=== PATIENT | male | born 1935 | race African-American/Black ===

== ENCOUNTER → 2016-08-05 | Outpatient (CLI) | payer MEDICARE ==
--- NOTE | 2016-08-05 16:17 | CARD ---
APPROVED REPORT EXAM: Two-dimensional and M-mode echocardiogram with Doppler and color Doppler. Other Information Quality : AverageHR: 63bpm Rhythm : NSR INDICATION Cardiac Disease: CAD 2D DIMENSIONS RVDd3.2 (2.9-3.5cm)Left Atrium(2D)4.0 (1.6-4.0cm) IVSd1.1 (0.7-1.1cm)Aortic Root(2D)3.2 (2.0-3.7cm) LVDd4.9 (3.9-5.9cm)LVOT Diameter2.2 (1.8-2.4cm) PWd1.1 (0.7-1.1cm)LVDs3.9 (2.5-4.0cm) FS (%) 22.0 %SV45.0 ml LVEF(%)45.0 (>50%) Aortic Valve AoV Peak Liam.106.3cm/sAoV VTI20.5cm AO Peak GR.4.5mmHgLVOT Peak Liam.81.2cm/s LVOT VTI 18.03cmAO Mean GR.3mmHg ELAINA (VMAX)2.52dp2RCN (VTI)3.27cm2 Mitral Valve MV E Fdqfyrfp62.3cm/sMV DECEL QFNA658zr MV A Bhdfeypr84.6cm/sMV E Mean Gr.1mmHg MV MDZ698pbM/A Ratio0.5 MV A Vhonlrwp075zaNTG (PHT)2.03cm2 TDI E/Lateral E'7.4E/Medial E'7.7 Pulmonary Valve PV Peak Eewsilhd95.8cm/sPV Peak Grad.2mmHg RVOT VTI14.5cm Tricuspid Valve TR P. Cjlokwpu556gv/sRAP ERBWMZXR0dzXx TR Peak Gr.93icNuLKTY50nqXw Pulmonary Vein S1 Fypwspmm58.7cm/sD2 Bzdovyet45.4cm/s PVa qbazbnur088sczj LEFT VENTRICLE The left ventricle is normal size. There is normal left ventricular wall thickness. Left ventricle sy stolic function is mildly decreased. The Ejection Fraction is 45-50%. There is severe hypokinesis in the lateral region. Transmitral Doppler flow pattern is Grade I-abnormal relaxation pattern. There is no ventricular septal defect visualized. RIGHT VENTRICLE The right ventricle is normal size. The right ventricular systolic function is normal. ATRIA The left atrium size is normal. The right atrium size is normal. The interatrial septum is intact wit h no evidence for an atrial septal defect or patent foramen ovale as noted on 2-D or Doppler imaging. AORTIC VALVE The aortic valve is mildly calcified but opens well. The aortic valve is trileaflet. Doppler and [place] r Flow revealed no significant aortic regurgitation. There is no significant aortic valvular stenosis . MITRAL VALVE Mitral annular calcification is mild. The mitral valve leaflets are calcified but opens well.. There is no evidence of mitral valve prolapse. There is no mitral valve stenosis. Doppler and Color-flow re vealed trace mitral regurgitation. TRICUSPID VALVE The tricuspid valve is normal in structure. Doppler and Color Flow revealed trace to mild tricuspid r egurgitation. The PA pressure was estimated at 26 mmHg. There is no tricuspid valve stenosis. PULMONIC VALVE The pulmonary valve is normal in structure. Doppler and Color Flow revealed mild pulmonic valvular re gurgitation. There is no pulmonic valvular stenosis. GREAT VESSELS The aortic root is normal in size. The ascending aorta is normal in size. The IVC is normal in size a nd collapses >50% with inspiration. PERICARDIAL EFFUSION There is no pleural effusion. There is no evidence of significant pericardial effusion. Critical Notification Critical Value: No <Conclusion> The left ventricle is normal size. Left ventricle systolic function is mildly decreased. The Ejection Fraction is 45-50%. There is severe hypokinesis in the lateral region. There is no significant aortic valvular stenosis. Doppler and Color Flow revealed no significant aortic regurgitation. Doppler and Color-flow revealed trace mitral regurgitation. Doppler and Color Flow revealed trace to mild tricuspid regurgitation. The PA pressure was estimated at 26 mmHg.
== END | disposition home or self-care (01) ==
LOC: ECHO 09:38
PROVIDERS: ATTEND Internal Medicine Cardiovascular Disease
DX: I25.10 Atherosclerotic heart disease of native coronary artery without angina pectoris (principal); I08.1 Rheumatic disorders of both mitral and tricuspid valves
CPT/HCPCS: 93306

== ENCOUNTER → 2016-08-17 | Outpatient (CLI) | payer MEDICARE ==
[~2016-08-17] MED LIST: REGADENOSON 0.4 MG/5 ML DISP.SYRIN. IV ONE
--- NOTE | 2016-08-17 13:12 | RAD ---
APPROVED REPORT Test Type: Pharmacological Stress Nurse/Tech: Suly Schofield RN Test Indications: ischemic cardiomyopathy Cardiac History: see ehr Medications: see ehr Medical History: see ehr Resting ECG: SR Resting Heart Rate: 70 bpm Resting Blood Pressure: 146/89mmHg Pretest Chest Pain: None Nurse/Tech Notes Lungs CTA, S1, S2 Consent: The procedure was explained to the patient in lay terms. Informed consent was witnessed. Rusty eout was entered into [employer]. History and Stress Test performed by Marilou GrandaNElizabeth Pharm. Details Pharmacologic stress testing was performed using 0.4mg per 5ml of regadenoson given intravenously ove r 7-10 seconds. Stress Symptoms No chest pain or symptoms. POST EXERCISE Reason for Termination: Infusion complete Max HR: 104 bpm Max Blood Pressure: 138/81mmHg Blood Pressure response to exercise: Normal blood pressure response during stress. Chest Pain: No. Arrhythmia: No. ST Change: No. INTERPRETATION Stress EKG Conclusion: Baseline EKG showed sinus rhythm with inferolateral T-wave inversions. Nondiag nostic changes at peak stress. No arrhythmias. Imaging Protocol IMAGE PROTOCOL: Rest Tc-99m/stress Tc-99m 1 day Rest: Stress: Viability: Radiopharm.Tc99m IkemjtvsqDo56x Sestamibi Cysq59jWd 32mCi Duration 15min. 10min. Img Date 08/17/2016 08/17/2016 Inj-Img Qhte84goh. 60min. Rest Admin Site:IV - Right HandAdministrator:KAYLENE Schulz, ARRT (R)(N) Stress Admin Site: IV - Right HandAdministrator: Arleen Felix, RT (R)(N) Viability Admin Site:12Administrator: STRESS DATA End Diast. Vol.145.0mlAv. Heart Rate60.0bpm End Syst. Vol.62.0mlCO Index BSA0.0L/min Myocardial Dyvo152.0gEject. Lbuqmzup22.0% Stress Rates Pk. Fill Rate1.63EDV/secLVtime Pk. Fill 105.63msec Pk. Empty Rate2.58ESV/secLVtime Pk. Mysim462.81msec 04/19 Pk. Fill1.10EDV/sec Stress Scores Regional WT0.00Summed WT16.00 Regional WM0.00Summed WM6.00 LV Perfusion Scintigraphic images showed small to moderate fixed defect involving the base to mid inferior wall co nsistent with previous myocardial infarction without any significant reversibility. Wall Motion Basal inferior wall hypokinesis with ejection fraction calculated at 57%. LV Perf. Quant 17 Seg. SSS5.00 17 Seg. SRS6.00 17 Seg. SDS1.00 Stress Defect Extent (% LAD)0.00Rest Defect Extent (% LAD)0.00Rev. Defect Extent (% LAD)0.00 Stress Defect Extent (% LCX) 0.00Rest Defect Extent (% LCX)0.00Rev. Defect Extent (% LCX)0.00 Stress Defect Extent (% RCA)41.10Rest Defect Extent (% RCA)40.00Rev. Defect Extent (% RCA)0.00 Stress Defect Extent (% EVELYN)9.80Rest Defect Extent (% EVELYN)9.80Rev. Defect Extent (% EVELYN)0.20 Conclusion 1. Regadenoson cardioisotope stress test showed small to moderate sized base to mid inferior wall inf arction without any significant ischemia. 2. Basal inferior wall hypokinesis with ejection fraction calculated at 57%. 3. Low risk for cardiac events.
== END | disposition home or self-care (01) ==
LOC: NM 07:37
PROVIDERS: ATTEND Internal Medicine Cardiovascular Disease
DX: I25.5 Ischemic cardiomyopathy (principal)
CPT/HCPCS: 78452; 93017; 96374; 96375; 96376; A9500; J2785

== ENCOUNTER → 2018-09-21 | Outpatient (CLI) | payer OTHER, MEDICARE ==
--- NOTE | 2018-09-21 12:03 | CARD ---
MR#: [id number] Date of Study: 09/21/2018 Ordering Physician: JOSH BLEDSOE, Referring Physician: JOSH BLEDSOE, Tech: Mellissa Cortes APPROVED REPORT EXAM: Two-dimensional and M-mode echocardiogram with Doppler and color Doppler. Other Information Quality : AverageHR: 63bpm INDICATION CAD RISK FACTORS Hypertension Hyperlipidemia Diabetes 2D DIMENSIONS RVDd3.2 (2.9-3.5cm)Left Atrium(2D)4.7 (1.6-4.0cm) IVSd1.1 (0.7-1.1cm)Aortic Root(2D)2.8 (2.0-3.7cm) LVOT Diameter2.1 (1.8-2.4cm)PWd0.8 (0.7-1.1cm) LVDs3.9 (2.5-4.0cm)FS (%) 34.6 % SV113.6 mlLVEF(%)62.8 (>50%) Aortic Valve AoV Peak Liam.148.9cm/sAoV VTI31.4cm AO Peak GR.8.9mmHgLVOT Peak Liam.75.8cm/s LVOT VTI 18.44cmAO Mean GR.5mmHg ELAINA (VMAX)1.78cx5BIE (VTI)1.98cm2 Mitral Valve MV E Ikpkdutn78.9cm/sMV DECEL UTGC323yq MV A Gaurkibq85.1cm/sMV TGQ15km E/A Ratio0.6MVA (PHT)2.57cm2 TDI E/Lateral E'7.1E/Medial E'12.9 Pulmonary Valve PV Peak Illpoarv62.1cm/sPV Peak Grad.3mmHg Tricuspid Valve TR P. Cpjpfwlv494qe/sRAP SLZUJDSH4zrUa TR Peak Gr.05ehElPJOX49svZl Pulmonary Vein S1 Wbjbpihs80.4cm/sD2 Enpodlsj48.4cm/s PVa dmbibxuh360pmet LEFT VENTRICLE The left ventricle is normal size. There is normal left ventricular wall thickness. The Ejection Frac tion is 55%. Basal inferoposterior wall hypokinesis. Transmitral Doppler flow pattern is Grade I-abno rmal relaxation pattern. RIGHT VENTRICLE The right ventricle is normal size. There is normal right ventricular wall thickness. The right ventr icular systolic function is normal. ATRIA The left atrium is borderline dilated. The right atrium is mildly dilated. The atrial septum is aneur ysmal. AORTIC VALVE The aortic valve is thickened but opens well. Doppler and Color Flow revealed trace aortic regurgitat ion. There is no significant aortic valvular stenosis. MITRAL VALVE The mitral valve is thickened but opens well. There is no evidence of mitral valve prolapse. There is no mitral valve stenosis. Doppler and Color-flow revealed trace mitral regurgitation. TRICUSPID VALVE The tricuspid valve is normal in structure and function. Doppler and Color Flow revealed trace tricus pid regurgitation with an estimated PAP of 31 mmHg. There is no tricuspid valve stenosis. PULMONIC VALVE The pulmonic valve is not well visualized. Doppler and Color Flow revealed trace pulmonic valvular re gurgitation. GREAT VESSELS The aortic root is normal in size. The IVC is normal in size and collapses >50% with inspiration. PERICARDIAL EFFUSION There is no evidence of significant pericardial effusion. Critical Notification Critical Value: No <Conclusion> Basal inferoposterior wall hypokinesis. The Ejection Fraction is 55%. Transmitral Doppler flow pattern is Grade I-abnormal relaxation pattern. Trace mitral regurgitation. Trace tricuspid regurgitation with an estimated PAP of 31 mmHg. There is no evidence of significant pericardial effusion. Signed by : Raheel Hansen, Electronically Approved : 09/21/2018 12:02:34
== END | disposition home or self-care (01) ==
LOC: ECHO 10:42
PROVIDERS: ATTEND Internal Medicine Cardiovascular Disease
DX: I25.10 Atherosclerotic heart disease of native coronary artery without angina pectoris (principal); I10 Essential (primary) hypertension; E78.5 Hyperlipidemia, unspecified; E11.9 Type 2 diabetes mellitus without complications; R00.8 Other abnormalities of heart beat
CPT/HCPCS: 93306

== ENCOUNTER → 2018-10-02 | Outpatient (CLI) | payer OTHER ==
--- NOTE | 2018-10-02 12:50 | RAD ---
MR#: [id number] Date of Study: 10/02/2018 Ordering Physician: JOSH MARQUEZ, Referring Physician: MAYRA PAGAN Tech: KAYLENE Schulz, FRANCIS (R) (N) APPROVED REPORT Test Type: Exercise Stress Nurse/Tech: Amanda Zapata R.N. Test Indications: CAD, Cardiac History: cardiac stents, htn , DM Medications: See Electronic Medical Record Medical History: See Electronic Medical Record Resting ECG: SR w/ inverted T waves in leads II,III,AVF, Resting Heart Rate: 66 bpm Resting Blood Pressure: 126/80mmHg Pretest Chest Pain: No chest pain Nurse/Tech Notes S1S2, lungs CTA Consent: The procedure was explained to the patient in lay terms. Informed consent was witnessed. Rusty eout was entered into [employer]. History and Stress Test performed by RT Manjula (R) (N) Stress Symptoms No chest pain or symptoms. POST EXERCISE Reason for Termination: Reached target heart rate Target HR: Yes Max HR: 132 bpm 111% of Maximum Predicted HR: 118 bpm Exercise duration: 6:55 min:sec, 3 Stage Exercise capacity: 10METs Max Blood Pressure: 171/101mmHg Blood Pressure response to exercise: Normal blood pressure response during stress. Heart Rate response to exercise: wnl Chest Pain: No. Arrhythmia: Yes. occ. pvc's noted ST Change: No. INTERPRETATION Stress EKG Conclusion: No evidence of stress induced EKG changes. Imaging Protocol IMAGE PROTOCOL: Rest Tc-99m/stress Tc-99m 1 day Rest: Stress: Viability: Radiopharm.Tc99m PagtcruljXm62r Sestamibi Img Date 10/02/2018 10/02/2018 Inj-Img Vnep29yja. 60min. Rest Admin Site:IV - Left AntecubitalAdministrator:KAYLENE Schulz, ARRDada (R)(N) Stress Admin Site: IV - Left AntecubitalAdministrator: RT Essie HeckR)(N) STRESS DATA End Diast. Vol.125.0mlAv. Heart Rate65.0bpm End Syst. Vol.48.0mlCO Index BSA5.0L/min Myocardial Dkgw998.0gEject. Ulmtlnaq70.0% Stress Rates Pk. Fill Rate1.93EDV/secLVtime Pk. Fill 277.17msec Pk. Empty Rate3.18ESV/secLVtime Pk. Jvoyo481.10msec 1/3 Pk. Fill0.48EDV/sec Stress Scores Regional WT0.00Summed WT9.00 Regional WM0.00Summed WM10.00 LV Perfusion There is a large sized, basal to mid inferior wall, inferoseptal wall and basal inferolateral wall FI XED defect suggestive of prior infarct without active ischemia. Wall Motion Normal wall motion. LV Perf. Quant 17 Seg. SSS6.00 17 Seg. SRS8.00 17 Seg. SDS1.00 Stress Defect Extent (% LAD)0.00Rest Defect Extent (% LAD)9.40Rev. Defect Extent (% LAD)0.00 Stress Defect Extent (% LCX) 0.00Rest Defect Extent (% LCX)8.80Rev. Defect Extent (% LCX)0.00 Stress Defect Extent (% RCA)56.70Rest Defect Extent (% RCA)50.00Rev. Defect Extent (% RCA)12.20 Stress Defect Extent (% EVELYN)13.70Rest Defect Extent (% EVELYN)18.00Rev. Defect Extent (% EVELYN)2.40 Other Information Quality:Fair Risk Assessment: Moderate Risk Conclusion 1. No evidence of EKG changes with stress testing. 2. Fixed inferior wall defect without ischemia. 3. Moderate risk study. 4. EF > 60%. Signed by : Josh Marquez, Electronically Approved : 10/02/2018 12:50:28
== END | disposition home or self-care (01) ==
LOC: NM 09:16
PROVIDERS: ATTEND Internal Medicine Cardiovascular Disease
DX: I25.10 Atherosclerotic heart disease of native coronary artery without angina pectoris (principal); I49.3 Ventricular premature depolarization; I10 Essential (primary) hypertension; E11.9 Type 2 diabetes mellitus without complications; Z95.5 Presence of coronary angioplasty implant and graft
CPT/HCPCS: 78452; 93017; A9500; 96376